=== PATIENT | male | born 1980 | race Caucasian/White ===

== ENCOUNTER 2022-05-22 09:04 | Day surgery (SDC) | payer OTHER ==
[~2022-05-22] VITALS: Ht 177.8 cm; Wt 88.9 kg
[~2022-05-22 09:04] MED LIST: AMPICILLIN SOD/SULBACTAM SOD 3 GM in D5W MINI-BAG PLUS 100 ML IV ONE; BUPIVACAINE LIPOSOME/PF 1.3% 20ML VIAL (13.3MG/ML)(EXPAREL) As Ordered ONE; LR 1,000 ML IV SCH; dexameTHASONE 4 MG/ML 1ML VIAL (J1100 PER 1MG) IV ONE
[2022-05-22] MEDS ORDERED: LIDOCAINE 2% W/ EPINEPHRINE 1.7 ML DENTAL INJ As Ordered ONE (11:42)
[2022-05-22] MEDS ORDERED: ONDANSETRON 4MG 2ML VIAL IV PRN (13:15)
[2022-05-22] MEDS ORDERED: METOCLOPRAMIDE INJ 10MG/2ML VIAL (J2765 PER 1) IV PRN (13:15)
[2022-05-22] MEDS ORDERED: HYDROMORPHONE HCL 0.5 MG/ 0.5 ML SYRINGE (J1170 PER 1) IV PRN (13:15)
[2022-05-22] MEDS ORDERED: fentaNYL 100 MCG/2 ML INJECTION IV PRN (13:15)
[2022-05-22] MEDS ORDERED: oxyCODONE 5MG TAB PO PRN (13:15)
[2022-05-22] MEDS ORDERED: LR 1,000 ML IV SCH (13:15)
[2022-05-22 15:33] VITALS: BP 130/69
[2022-05-22] MEDS ORDERED: ONDANSETRON 4MG 2ML VIAL As Ordered ONE (17:05)
[2022-05-22] MEDS ORDERED: propofoL 200 MG/20 ML VIAL As Ordered ONE (17:05)
[2022-05-22] MEDS ORDERED: ROCURONIUM BROMIDE 50 MG/5 ML VIAL As Ordered ONE (17:05)
[2022-05-22] MEDS ORDERED: MIDAZOLAM INJ 2MG/2ML VIAL (J2250 PER 1MG) As Ordered ONE (17:05)
[2022-05-22] MEDS ORDERED: SUGAMMADEX SODIUM 500 MG/5 ML VIAL (BRIDION) As Ordered ONE (17:05)
[2022-05-22] MEDS ORDERED: LIDOCAINE 2% 100MG/5ML SDV (FOR ANES.) As Ordered ONE (17:05)
[2022-05-22] MEDS ORDERED: fentaNYL 100 MCG/2 ML INJECTION As Ordered ONE (17:05)
[2022-05-22] MEDS ORDERED: KETOROLAC 60MG 2ML VIAL As Ordered ONE (17:05)
== END 2022-05-22 15:44 | disposition home or self-care (01) ==
LOC: M SDC 09:04
PROVIDERS: ATTEND Dentist
DX: K02.9 Dental caries, unspecified (principal); Z87.891 Personal history of nicotine dependence
CPT/HCPCS: 88300; C9290; D7210; D9223; J0295; J1100; J1885; J2250; J2405; J3010